=== PATIENT | male | born 1965 | race Caucasian/White ===

== ENCOUNTER 2018-05-15 10:58 | Inpatient (IN) | payer BC ==
--- NOTE | 2018-05-14 22:18 | PREOPHP ---
DATE OF ADMISSION: 05/15/2018 HISTORY OF PRESENT ILLNESS: The patient was originally seen in the office for evaluation of neck pain, shoulder pain, arm pain, weakness in his hands, and weakness in the legs with unstable balance. Patient was diagnosed with cervical 4, 5, 6, spondylosis with disc herniation, cord compression and myelopathy, quadraparesis. The patient received conservative management with a cervical epidural injections without any benefit. He also had received physical therapy and pain management in the past without much relief. Condition is getting worse. The patient is having more pain in the shoulders, weakness in the arms, weakness in his legs and is affecting his activities of daily living. Patient wants something more definitive to be done. The only option left is for patient to undergo surgical intervention of cervical 4, 5, 6 partial vertebrectomy, discectomy, interbody fusion, anterior locking plate. Procedure was described to the patient in great detail. The risks, benefits, possible complications explained extensively. The patient agrees and wants to proceed with surgical intervention. PAST MEDICAL HISTORY: Per chart. PAST SURGICAL HISTORY: Per chart. SOCIAL HISTORY: Denies use of drugs, alcohol or tobacco. ALLERGIES: PER CHART. MEDICATIONS: Taken at home per chart. FAMILY HISTORY: Unremarkable. REVIEW OF SYSTEMS: Additional 10 point system was conducted. The patient denies any bladder or bowel dysfunction. He states that his gait is unstable. PHYSICAL EXAMINATION: GENERAL: Patient is awake, alert, oriented. Follows commands. HEENT: Unremarkable. PULMONARY: No dyspnea and no tachypnea. CARDIOVASCULAR: No JVD. No pedal edema. ABDOMEN: Soft. No guarding or rebound. NEUROLOGIC: Awake alert, oriented. Follows commands. EXTREMITIES: Upper extremities overall strength 4/5 in deltoids, biceps, triceps, wrist extensors, intrinsics. MUSCULOSKELETAL: Hips, knees, and ankles overall strength is about 4/5 in iliopsoas, gastrocnemius, and anterior tibialis. IMAGING: Findings cervical spine MRI shows cervical 4, 5, 6 spondylosis with disc herniation, cord compression, myelopathy. IMPRESSION: Cervical 4, 5, 6, spondylosis, disc herniation, cord compression, myelopathy, quadraparesis. RECOMMENDATION: The patient to proceed with surgical intervention of cervical 4, 5, 6, partial vertebrectomy, discectomy, spinal fusion, ad anterior locking plate. The procedure was described to the patient in great detail. Approximately 45 minutes was spent with the patient going over the details of the surgery. Complications explained extensively including, infection, bleeding, permanent nerve damage, permanent cord injury, stroke, heart attack, even . Patient understands and wants to proceed with surgical intervention. The patient will be admitted to [facility] thereafter for further care and management. Dictated By: Jsoh Sargent MD /jameson/jada /Document#: [id number]
[~2018-05-15] VITALS: Ht 180.3 cm; Wt 101.4 kg
[2018-05-16] VITALS (36 sets, daily range): BP systolic 100–159; BP diastolic 54–103; PULSE 95–127; RESP 11–19; Ht 180.3 cm; Wt 101.4 kg
[2018-05-16] MEDS ORDERED: CEFAZOLIN 1 GM INJ ONE (07:00)
[2018-05-16] MEDS ORDERED: ONDANSETRON 4 MG INJ ONE (07:00)
[2018-05-16] MEDS ORDERED: DEXAMETHASONE 4 MG/ML 5 ML INJ ONE (07:00)
[2018-05-16] MEDS ORDERED: SUGAMMADEX SODIUM 200 MG/2 ML VIAL IV ONE (07:00)
[2018-05-16] MEDS ORDERED: DESFLURANE 15 MIN ONE (07:00)
[2018-05-16] MEDS ORDERED: niCARdipine 50 MG in SOD CHLORIDE 0.9% 480 ML IV SCH (11:00)
[2018-05-16] MEDS ORDERED: morphine 2 MG INJ IV PRN (11:00)
[2018-05-16] MEDS ORDERED: ONDANSETRON 4 MG INJ IV PRN ×2 (11:00→13:30)
[2018-05-16] MEDS ORDERED: ERGO2000 PO (11:42)
[2018-05-16] MEDS ORDERED: ATOR40TA68 PO (11:42)
[2018-05-16] MEDS ORDERED: ASPI81TA52 PO (11:42)
[2018-05-16] MEDS ORDERED: FOLI-49 PO (11:43)
[2018-05-16] MEDS ORDERED: CYCL10TA7 PO (11:43)
[2018-05-16] MEDS ORDERED: GABA300C16 PO (11:44)
[2018-05-16] MEDS ORDERED: HYDR25TA6 PO (11:45)
[2018-05-16] MEDS ORDERED: SUCCINYLCHOLINE CHLORIDE 100 MG/5 ML SYG IV ONE (12:22)
[2018-05-16] MEDS ORDERED: PROPOFOL 20 ML ONE (12:22)
[2018-05-16] MEDS ORDERED: LIDOCAINE 2% (SDV) 5 ML INJ ONE (12:22)
[2018-05-16] MEDS ORDERED: FENTAnyl 50 MCG/ML VIAL ONE ×2 (12:22→14:10)
[2018-05-16] MEDS ORDERED: METOCLOPRAMIDE 10 MG INJ ONE (12:22)
[2018-05-16] MEDS ORDERED: ROCURONIUM 50 MG INJ ONE (12:22)
[2018-05-16] MEDS ORDERED: MIDAZOLAM 1 MG/ML 2 ML INJ ONE (12:23)
[2018-05-16] MEDS ORDERED: THROMBIN 5000 UNIT VIAL ONE (13:17)
[2018-05-16] MEDS ORDERED: POLYMYXIN/BACITRACIN 1L IRRIG ONE (13:17)
[2018-05-16] MEDS ORDERED: BUPIVACAINE 0.5% (SDV) 30 ML INJ ONE (13:17)
--- NOTE | 2018-05-16 13:24 | PREAC ---
Date/Time of Note Date/Time of Note DATE: 05/16/18 TIME: 13:23 Anesthesia Eval and Record Evaluation Time Pre-Procedure Interview DATE: 05/16/18 TIME: 13:23 Age 52 Sex male NPO: 8 hrs Preoperative diagnosis cervical spinal stenosis Planned procedure cervical spinal decompression and fusion Past Medical History Past Medical History: Includes Cardio: HTN, Dyslipidemia Pulm: Smoking Hx (1ppd), COPD, Sleep Apnea Renal: Other (kidney stones) GI: Obesity Surgery & Anesthesia Issues Hx of difficult intubation Meds Anticoagulation: No Beta Lucio within 24 hr: No Reason Beta Lucio not given: Pt. not on B-Lucio Reported Medications Hydrochlorothiazide* (Hydrochlorothiazide*) 25 Mg Tab, 25 MG PO DAILY, #30 TAB 05/16/18 Gabapentin* (Gabapentin*) 300 Mg Capsule, 300 MG PO TID, #90 CAP 05/16/18 Folic Acid* (Folic Acid*) 1 Mg Tablet, 1 MG PO DAILY, TAB 05/16/18 Cyclobenzaprine Hcl* (Cyclobenzaprine Hcl*) 10 Mg Tablet, 10 MG PO Q8 PRN for PAIN AND/OR INFLAMMATION, #60 TAB 05/16/18 Ergocalciferol (Vitamin D2) (VITAMIN D2) 2,000 Unit Tablet, 2000 UNIT PO DAILY, TAB 05/16/18 Atorvastatin* (Atorvastatin*) 40 Mg Tablet, 40 MG PO QHS, #30 TAB 05/16/18 Aspirin (Low Dose Aspirin) 81 Mg Tablet.dr, 81 MG PO DAILY, #30 TAB 05/16/18 Current Medications Dextrose/Lactated Ringer's 1,000 ml @ 125 mls/hr Q8H IV ; Start 05/16/18 at 11:00; Status UNV Dexamethasone (Decadron) 4 mg Q6 IV ; Start 05/16/18 at 12:00; Stop 05/17/18 at 12:00; Status UNV Nicardipine HCl 50 mg/Sodium Chloride 500 ml @ 50 mls/hr TITRATE IV ; Start 05/16/18 at 11:00; Status UNV Clindamycin HCl/ Dextrose 50 ml @ 50 mls/hr Q6 IVPB ; Start 05/16/18 at 12:00; Stop 05/17/18 at 12:00; Status UNV Ondansetron HCl (Zofran Inj) 4 mg Q6H PRN IV NAUSEA AND/OR VOMITING; Start 05/16/18 at 11:00; Status UNV Morphine Sulfate (morphine) 2 mg Q4H PRN IV SEVERE PAIN LEVEL 7-10; Start 05/16/18 at 11:00; Status UNV Acetaminophen/ Hydrocodone Bitart ([place] (5/325)) 1 tab Q4H PRN PO MODERATE PAIN LEVEL 4-6; Start 05/16/18 at 11:00; Status UNV Meds reviewed: Yes Allergies Coded Allergies: Penicillins (Verified Allergy, Unknown, 05/16/18) bee venom protein (honey bee) (Verified Allergy, Unknown, 05/16/18) Allergies Reviewed: Yes Labs/Studies Labs Reviewed: Reviewed by anesthesiologist Result Diagram: 05/16/18 1207 05/16/18 1207 Laboratory Tests 05/16/18 12:07 test: N/A Studies: ECG, CXR Pre-procedure Exam Last vitals Vital Signs Date Temp Pulse Resp B/P (MAP) Pulse Ox O2 O2 Flow FiO2 Time Delivery Rate 05/16/18 97.0 99 16 137/88 98 Room Air 11:07 (104) Airway: Adequate mouth opening, Adequate thyromental dist Mallampati: Mallampati III Teeth: Normal Lung: Normal Heart: Normal ASA Physical Status ASA physical status: 3 Emergency: None Planned Anesthetic General/MAC: ETT Planned Pain Management Parenteral pain med, Other neuraxial med, Local by surgeon Pre-operative Attestations Prior to commencing anesthesia and surgery, the patient was re-evaluated, there was verification of: *The patient's identity *The results of appropriate recent lab work and preoperative vital signs *The above evaluation not changing prior to induction *Anesthetic plan, risk benefits, alternative and complications discussed with patient/family; questions answered; patient/family understands, accepts and wishes to proceed. ALDO GOULD MD May 16, 2018 13:24
[2018-05-16] MEDS ORDERED: HALOPERIDOL 5 MG INJ IV PRN (13:30)
[2018-05-16] MEDS ORDERED: hydrALAzine 20 MG INJ IV PRN (13:30)
[2018-05-16] MEDS ORDERED: MIDAZOLAM 1 MG/ML 2 ML INJ IV PRN (13:30)
[2018-05-16] MEDS ORDERED: FENTAnyl 50 MCG/ML VIAL IV PRN (13:30)
[2018-05-16] MEDS ORDERED: MEPERIDINE 25 MG INJ IV PRN (13:30)
[2018-05-16] MEDS ORDERED: DIPHENHYDRAMINE 50 MG INJ IV PRN (13:30)
[2018-05-16] MEDS ORDERED: LABETALOL HCL 20MG INJ IV PRN (13:30)
[2018-05-16] MEDS ORDERED: LEVALBUTEROL (NEB) 1.25 MG/0.5 ML AMP HHN PRN (13:30)
[2018-05-16] MEDS ORDERED: HYDROmorphONE 1 MG/5 ML IV SYRINGE IV PRN ×3 (13:30)
[2018-05-16] MEDS ORDERED: LORAZEPAM 2 MG INJ IV PRN (13:30)
[2018-05-16] MEDS ORDERED: IPRATROPIUM (NEB) 0.5 MG/2.5 ML AMP HHN PRN (13:30)
--- NOTE | 2018-05-16 13:30 | HPN ---
Date/Time of Note Date/Time of Note DATE: 05/16/18 TIME: 13:30 Interval H&P Admission Note Pt. seen H&P reviewed: No system changes XOCHITL GONSALES PA-C May 16, 2018 13:30
[2018-05-16] MEDS ORDERED: BUPIVACAINE 0.5%/EPI (SDV) 30 ML INJ INJ SCH (13:45)
--- NOTE | 2018-05-16 15:39 | OPR ---
Date/Time of Note Date/Time of Note DATE: 05/16/18 TIME: 15:36 Operative Report Preoperative Diagnosis CERVICAL FOUR FIVE SIX SEVERE SPONDYLOSIS WITH CORD COMPRESSION, MYELOPATHY, QUADRIPARESIS Postoperative Diagnosis SAME Operation/Procedure Performed CERVICAL FOUR FIVE SIX PARTIAL VERTEBRECTOMY, DISKECTOMY, INTERBODY FUSION AND ANTERIOR LOCKING PLATE Surgeon see signature line Fire Boss XOCHITL GONSALES PAC Anesthesia Type: general Anesthesiologist: ALDO GOULD MD Estimated Blood Loss: 10 - 50 ml's Transfusion none Specimen DISC Grafts/Implants none Complications none Pt Condition Post Procedure: stable Procedure Description CERVICAL FOUR FIVE SIX PARTIAL VERTEBRECTOMY WITH DISKECTOMY, INTERBODY FUSION AND ANTERIOR LOCKING PLATE XOCHITL GONSALES PA-C May 16, 2018 15:39
[2018-05-16] MEDS: DEXAMETHASONE 4 MG/ML 1 ML INJ IV SCH ×3 (16:40→23:58)
[2018-05-16] MEDS: FENTAnyl 50 MCG/ML VIAL IV PRN ×3 (17:06→18:45)
[2018-05-16] MEDS: DEXTROSE 5%-LR 1,000 ML IV SCH ×2 (17:40→19:00)
[2018-05-16] MEDS ORDERED: SOD CHLORIDE 0.9% 250 ML IV ONE (19:00)
[2018-05-16] MEDS ORDERED: morphine SULFATE/PF (2 MG/2 ML) SYG IV PRN (20:00)
[2018-05-16] MEDS: CLINDAMYCIN 600 MG/D5W (PMX) 50 ML IVPB SCH (20:21)
[2018-05-16] MEDS: morphine SULFATE/PF (2 MG/2 ML) SYG IV PRN (20:56)
[2018-05-16] MEDS: HYDROCODONE/APAP (5/325) TAB PO PRN (21:36)
--- NOTE | 2018-05-16 21:52 | RADRPT ---
Vent Rate: 95 bpm RR Interval: 0 msec LA Interval: 136 msec QRS Duration: 92 msec QT Interval: 352 msec QTC Interval: 442 msec P-R-T Shafer: 65 - 43 - 40 degrees Normal sinus rhythm Nonspecific ST and T wave abnormality Abnormal ECG Electronically Signed By: Garry Daley [id number]
--- NOTE | 2018-05-16 23:15 | HP ---
DATE OF ADMISSION: 05/16/2018 CHIEF COMPLAINT AND HISTORY OF PRESENT ILLNESS: The patient is a 52-year-old gentleman with history of hypertension and dyslipidemia who was seen by Dr. Chiu as an outpatient. The patient was evalu ated for neck pain, shoulder pain, arm pain and weakness in his hands and legs. The patient also has unsteady balance. The patient was diagnosed with cervical C4 through C6 spondylosis with disk herni ation with cord compression, myelopathy and quadriparesis. The patient received conservative managem ent with cervical epidural injection without any benefit. The patient also underwent physical therap y and pain management again without much relief. The patient was admitted today for a C4 through C6 partial vertebrectomy, diskectomy, spinal fusion. The patient postoperatively had a C-spine collar. REVIEW OF SYSTEMS: The patient denies any chest pain or short of breath. No history of fever or chi lls noted. No known history of coronary artery disease. No history of CVA in the past. No history of fever or chills. No history of vomiting. The rest of the review of systems is unremarkable. PAST SURGICAL HISTORY: None. ALLERGIES: 1. PENICILLIN. 2. BEE STING. FAMILY HISTORY: Noncontributory. SOCIAL HISTORY: No smoking, no alcohol. PHYSICAL EXAMINATION: GENERAL: The patient is awake, alert, fairly oriented. VITAL SIGNS: Temperature 98.1, pulse 110, respiration rate 18, blood pressure 142/90, O2 saturation 98% on 2 liters cannula. HEENT: No eye discharge or redness. Nose and ear are normal. NECK: A C-spine collar is in place. CHEST: Fairly clear. CARDIOVASCULAR: S1, S2 normal. ABDOMEN: Soft, nontender. EXTREMITIES: No leg edema. NEUROLOGIC: The patient is awake, alert, oriented, and moves all extremities. Detailed neurological examination was deferred due to ____. LABORATORY DATA: Labs done this morning, WBC 8.4, hemoglobin 18.2, platelet 173. Sodium 141, potass ium 3.6. Liver enzymes normal. Coagulation profile unremarkable. IMPRESSION: 1. C-spine spondylosis with cord compression, myelopathy and quadriparesis, status post surgery as d escribed above. 2. Hypertension. 3. Dyslipidemia. PLAN: The patient will be monitored in ICU and will be given IV clindamycin as per protocol. The pa tient will also be given IV fluids and was started on IV Cardizem drip for control of blood pressure. The patient also is on IV Decadron. For pain control, patient will be given Tylenol, [place] and IV morphine depending upon severity of the pain. We will do followup labs. Further recommendation will depend on patient's hospital course. Dictated By: NICOLE VELIZ/GELACIO Conf#: [id number] DID#: [id number] CC: SARAH CHIU MD;*EndCC*
[2018-05-17] VITALS (13 sets, daily range): BP systolic 115–152; BP diastolic 74–96; PULSE 74–119; RESP 14–20
[2018-05-17] MEDS ORDERED: METOPROLOL 5 MG INJ IV PRN (01:00)
[2018-05-17] MEDS: DEXTROSE 5%-LR 1,000 ML IV SCH ×3 (01:21→19:00)
[2018-05-17] MEDS: morphine SULFATE/PF (2 MG/2 ML) SYG IV PRN ×2 (04:47→09:23)
[2018-05-17] MEDS: DEXAMETHASONE 4 MG/ML 1 ML INJ IV SCH ×2 (06:26→11:58)
[2018-05-17] MEDS: CLINDAMYCIN 600 MG/D5W (PMX) 50 ML IVPB SCH ×3 (06:26→11:59)
[2018-05-17] MEDS: HYDROCODONE/APAP (5/325) TAB PO PRN ×3 (08:17→19:51)
--- NOTE | 2018-05-17 10:41 | OPR ---
DATE OF OPERATION: 05/16/2018 PREOPERATIVE DIAGNOSES: Cervical spondylosis, cervical stenosis, cervical radiculopathy with cervical quadriparesis number myelopathy C4-5, C5-6 stenosis. POSTOPERATIVE DIAGNOSES: 1. Cervical spondylosis, cervical stenosis, cervical radiculopathy with cervical quadraparesis number myelopathy C4-5, C5-6 stenosis, and cervical quadraparesis. PROCEDURES: 1. C4 partial vertebrectomy, anterior approach, CPT 05682. 2. C5 and C6 additional 2 level partial vertebrectomy CPT 56199 x 2. 3. C4-C5, anterior cervical interbody arthrodesis, CPT 75089. 4. C5-C6, anterior cervical interbody arthrodesis, CPT 72415. 5. C4-C5-C6, anterior cervical instrumentation utilizing [employer] Vectra T anterior cervical plate, CPT 74517. 6. C4-5, C5-6 placement of allograft for spinal fusion utilizing MTF ACF spacer with demineralized bone matrix, CPT 02838. SURGEON: Josh Sargent MD. REGIONAL AGRONOMIST: Mc Zhou PA-C. COMPLICATIONS: None. ANESTHESIA: General tracheal. ESTIMATED BLOOD LOSS: Was less than 100. COUNTS: Needle count and sponge counts were correct. SPECIMEN: Multiple fragments of disc were sent to pathology. INDICATION FOR OPERATION: Patient is well known to me. She was seen my office on multiple occasions. The patient is a 52-year- old with cervical spondylosis C5-6, C4-5. There is severe stenosis at C4-5. There is anterior . There is a central disc herniation. There is no foraminal or central cord stenosis. We will proceed with cervical diskectomy, partial vertebrectomy at C4-5 and C5-6 with interbody fusion instrumentation. Discussed operation including anesthesia, infection, bleeding, permanent neurologic injury and were explained. The patient agreed to proceed with the operation and signed the consent. OPERATION PERFORMED: The patient was placed supine. Conscious sedation was obtained. Neck was placed in a semi extended position and the neck was prepped in the normal sterile fashion. Fluoroscopy confirmed. Incision was made in the left anterior neck and past the platysma all the way to the anterior cervical fascia which was divided laterally, medially, superiorly, inferiorly and with the deep retractors form of [place] retractors were placed. X-ray confirmed the patient C4-5 and C5-6 level. Discectomy at C4-5 was done, partial vertebrectomy of the anterior osteophytes of the C5-6 was done. A complete discectomy at C4-5 was done, but since there was severe osteophyte formation I had to remove the inferior 3 mm vertebral body of C4 facet and superior 3 mm of C5 all the way to the posterior longitudinal ligament, which was drilled away and all the osteophytes were removed. The posterior translongitudinal ligament was detached from the posterior aspect of the vertebral body and was removed along with all the osteophytes with neural foraminotomy at both sides of midline with takedown of the joint. There is severe central canal stenosis. The spinal showed some improvement of signal. Same operation was done at the C5-6 level with complete discectomy. Following this, at the level of C4-5 I used 9 mm spacer provided by [employer] bone system. The bone was packed that 1 cc of demineralized bone matrix was tapped into place at the C4-5. The same procedure was done at the level of C4-5 and C5-6. At the level of C5-6 a 10 mm bone was utilized. Following this, the I started instrumentation part with a [employer] Vectra T-plate that was 38 mm long was affixed to the cervical spine with 14 mm screws. A total of 6 screws were utilized. Everything was torque tightened strictly stationed. The area was irrigated with bacitracin saline solution. The top was removed from the plate and closure of wound was started with 2-0 Vicryl for the platysma ,4 nylon subcuticular fashion for the skin with stay stitch in the skin. Patient tolerated the procedure well. Was taken to postanesthesia recovery in stable condition following commands and moving all upper and lower extremities. Dictated By: Josh Sargent MD /jameson/jada /Document#: [id number]
[2018-05-17] MEDS ORDERED: morphine 4 MG/ML VIAL IV PRN (12:30)
--- NOTE | 2018-05-17 18:13 | CONS ---
Date/Time of Note Date/Time of Note DATE: 05/17/18 TIME: 18:12 Assessment/Plan Assessment/Plan Assessment/Plan seen/examined awake alert follows moves all wound looks ok, steristrips applied, not bleeding post op mri looks good, c4-5-6 acdf, bruise on cord at c4-5 level pt/ot advance diet dc man ss eval. Result Diagram: 05/16/18 1207 05/17/18 0500 Results 24hrs Laboratory Tests Test 05/17/18 05:00 Sodium Level 140 Potassium Level 3.6 Chloride Level 101 Carbon Dioxide Level 26 Anion Gap 13 Blood Urea Nitrogen 15 Creatinine 0.87 Est Glomerular Filtrat Rate mL/min > 60 Glucose Level 155 Calcium Level 9.8 Consultation Date/Type/Reason Admit Date/Time May 16, 2018 at 11:00 Initial Consult Date Exam/Review of Systems Vital Signs Vitals Vital Signs Date Temp Pulse Resp B/P (MAP) Pulse Ox O2 O2 Flow FiO2 Time Delivery Rate 05/17/18 98.1 108 18 138/81 93 14:13 (100) 05/17/18 Nasal 10:00 Cannula 05/17/18 2.0 08:00 Intake and Output 05/16/18 05/16/18 05/17/18 1515:00 23:00 07:00 IntakeIntake Total 1500 ml 1465.75 ml 1090 ml OutputOutput Total 1585 ml 650 ml BalanceBalance 1500 ml -119.25 ml 440 ml Medications Medications Current Medications Dextrose/Lactated Ringer's 1,000 ml @ 125 mls/hr Q8H IV Last administered on 05/17/18at 11:59; Admin Dose 125 MLS/HR; Start 05/16/18 at 11:00 Ondansetron HCl (Zofran Inj) 4 mg Q6H PRN IV NAUSEA AND/OR VOMITING; Start 05/16/18 at 11:00 Acetaminophen/ Hydrocodone Bitart ([place] (5/325)) 1 tab Q4H PRN PO MODERATE PAIN LEVEL 4-6 Last administered on 05/17/18at 08:17; Admin Dose 1 TAB; Start 05/16/18 at 11:00 Metoprolol Tartrate (Lopressor) 5 mg Q6H PRN IV HR GREATER THAN 110 Last administered on 05/17/18at 01:16; Admin Dose 5 MG; Start 05/17/18 at 01:00; Status Hold Morphine Sulfate (morphine) 2 mg Q3 PRN IV SEVERE PAIN LEVEL 7-10 Last administ ered on 05/17/18at 12:38; Admin Dose 2 MG; Start 05/17/18 at 12:30 Miscellaneous Information (* Miscellaneous Pharmacy Order) PLEASE CONTACT PHYSIC... DAILY XX ; Start 05/17/18 at 12:32 Hydralazine HCl (Apresoline) 25 mg BID PRN PO SBP>150; Start 05/17/18 at 14:30 Acetaminophen/ Hydrocodone Bitart ([place] (5/325)) 2 tab Q4H PRN PO PAIN LEVEL 7-10 Last administered on 05/17/18at 15:24; Admin Dose 2 TAB; Start 05/17/18 at 14:30 XOCHITL GONSALES PA-C May 17, 2018 18:13
[2018-05-17] MEDS: [UNRECOGNIZED DRUG - OTHER] XX SCH (19:15)
[2018-05-18 02:17] VITALS: BP 143/82; PULSE 78; RESP 18
[2018-05-18 02:30] VITALS: BP 133/78; PULSE 78
[2018-05-18 07:16] VITALS: BP 153/98; PULSE 95; RESP 19
[2018-05-18] MEDS: HYDROCODONE/APAP (5/325) TAB PO PRN ×4 (07:30→22:47)
[2018-05-18] MEDS: [UNRECOGNIZED DRUG - OTHER] XX SCH (09:00)
--- NOTE | 2018-05-18 09:36 | CONS ---
Date/Time of Note Date/Time of Note DATE: 05/18/18 TIME: 09:33 Assessment/Plan Assessment/Plan Assessment/Plan seen/examined awake alert follows moves all good post op progress wound looks good, dry dc instructions given can go home in am Result Diagram: 05/16/18 1207 05/17/18 0500 Consultation Date/Type/Reason Admit Date/Time May 16, 2018 at 11:00 Initial Consult Date Exam/Review of Systems Vital Signs Vitals Vital Signs Date Temp Pulse Resp B/P (MAP) Pulse Ox O2 O2 Flow FiO2 Time Delivery Rate 05/18/18 98.1 95 19 153/98 95 Room Air 07:16 (116) 05/17/18 2.0 08:00 Intake and Output 05/17/18 05/17/18 05/18/18 1515:00 23:00 07:00 IntakeIntake Total 420 ml 1590 ml 500 ml OutputOutput Total 150 ml 850 ml BalanceBalance 270 ml 740 ml 500 ml Medications Medications Current Medications Ondansetron HCl (Zofran Inj) 4 mg Q6H PRN IV NAUSEA AND/OR VOMITING; Start 05/16/18 at 11:00 Acetaminophen/ Hydrocodone Bitart ([place] (5/325)) 1 tab Q4H PRN PO MODERATE PAIN LEVEL 4-6 Last administered on 05/17/18at 08:17; Admin Dose 1 TAB; Start 05/16/18 at 11:00 Metoprolol Tartrate (Lopressor) 5 mg Q6H PRN IV HR GREATER THAN 110 Last administered on 05/17/18at 01:16; Admin Dose 5 MG; Start 05/17/18 at 01:00; Status Hold Morphine Sulfate (morphine) 2 mg Q3 PRN IV SEVERE PAIN LEVEL 7-10 Last adminis tered on 05/17/18at 12:38; Admin Dose 2 MG; Start 05/17/18 at 12:30 Miscellaneous Information (* Miscellaneous Pharmacy Order) PLEASE CONTACT PHYSIC... DAILY XX ; Start 05/17/18 at 12:32 Hydralazine HCl (Apresoline) 25 mg BID PRN PO SBP>150 Last administered on 05/18/18at 07:41; Admin Dose 25 MG; Start 05/17/18 at 14:30 Acetaminophen/ Hydrocodone Bitart ([place] (5/325)) 2 tab Q4H PRN PO PAIN LEVEL 7-10 Last administered on 05/18/18at 07:30; Admin Dose 2 TAB; Start 05/17/18 at 14:30 Nicotine (Nicoderm 7 Mg/ 24 Hr) 1 patch DAILY TRANSDERM ; Start 05/18/18 at 21:00 XOCHITL GONSALES PA-C May 18, 2018 09:36
[2018-05-18] MEDS: NICOTINE (7 MG/24 HR) PATCH TRANSDERM SCH (10:37)
[2018-05-18] MEDS: HYDROCHLOROTHIAZIDE 25 MG TAB PO SCH (11:33)
--- NOTE | 2018-05-18 11:52 | PN ---
DATE: 05/17/2018 SUBJECTIVE: The patient's postoperative pain is well controlled. No reported chest pain or shortnes s of breath, no reported temperature spike. No reported vomiting. PHYSICAL EXAMINATION: GENERAL: The patient be awake, alert. VITAL SIGNS: Temperature 98.1, pulse 108, respiration 18, blood pressure 138/81, O2 saturation 92% t o 96% on room air. HEENT: No eye discharge or redness. NECK: The patient has C-spine collar. CHEST: Fairly clear. CARDIOVASCULAR: S1, S2 normal. ABDOMEN: Soft, nondistended, nontender. EXTREMITIES: No leg edema. NEUROLOGIC: The patient is awake, alert with no gross focal deficit. LABORATORY DATA: Chemistry done on 05/17/2018. Sodium 140, potassium 3.6, BUN 15, creatinine 0.8, g lucose 155, calcium 9.8. IMPRESSION: 1. C-spine spondylosis with cord compression and cervical myelopathy and quadriparesis, status post surgery. 2. Hypertension. 3. Dyslipidemia. The patient postop C-spine MRI reviewed. The patient clinically remains stable. The patient will be switched to Hydralazine on p.r.n. basis. The patient has been moved out of ICU. Continue postop care as per Dr. Chiu. We will continue to follow him from a medical standpoint. Dictated By: NICOLE VELIZ/GELACIO Conf#: [id number] DID#: [id number] CC: SARAH CHIU MD;*EndCC*
[2018-05-18] MEDS: GABAPENTIN 300 MG CAP PO SCH ×2 (12:57→21:09)
--- NOTE | 2018-05-18 14:04 | PN ---
Date/Time of Note Date/Time of Note DATE: 05/18/18 TIME: 14:03 Assessment/Plan VTE Prophylaxis Risk score (from Ns)>0 risk: 2 SCD applied (from Ns): Yes Lines/Catheters IV Catheter Type (from Nrsg): Saline Lock Urinary Cath still in place: Yes Reason Cath still needed: urinary retention Assessment/Plan Assessment/Plan 1. C-spine spondylosis with cord compression and cervical myelopathy and quadriparesis, status post surgery. - C-spine spondylosis with cord compression and cervical myelopathy and quadriparesis, status post surgery. 2. Hypertension. 3. Dyslipidemia. The patient postop C-spine MRI reviewed. The patient clinically remains stable. Result Diagram: 05/16/18 1207 05/17/18 0500 Exam/Review of Systems Vital Signs Vitals Vital Signs Date Temp Pulse Resp B/P (MAP) Pulse Ox O2 O2 Flow FiO2 Time Delivery Rate 05/18/18 98.1 95 19 153/98 95 Room Air 07:16 (116) 05/17/18 2.0 08:00 Intake and Output 05/17/18 05/17/18 05/18/18 1515:00 23:00 07:00 IntakeIntake Total 420 ml 1590 ml 500 ml OutputOutput Total 150 ml 850 ml BalanceBalance 270 ml 740 ml 500 ml Medications Medications Current Medications Ondansetron HCl (Zofran Inj) 4 mg Q6H PRN IV NAUSEA AND/OR VOMITING; Start 05/16/18 at 11:00 Acetaminophen/ Hydrocodone Bitart ([place] (5/325)) 1 tab Q4H PRN PO MODERATE PAIN LEVEL 4-6 Last administered on 05/17/18at 08:17; Admin Dose 1 TAB; Start 05/16/18 at 11:00 Metoprolol Tartrate (Lopressor) 5 mg Q6H PRN IV HR GREATER THAN 110 Last administered on 05/17/18at 01:16; Admin Dose 5 MG; Start 05/17/18 at 01:00; Status Hold Morphine Sulfate (morphine) 2 mg Q3 PRN IV SEVERE PAIN LEVEL 7-10 Last administered on 05/17/18at 12:38; Admin Dose 2 MG; Start 05/17/18 at 12:30 Miscellaneous Information (* Miscellaneous Pharmacy Order) PLEASE CONTACT PHYSIC... DAILY XX ; Start 05/17/18 at 12:32 Hydralazine HCl (Apresoline) 25 mg BID PRN PO SBP>150 Last administered on 05/18/18at 07:41; Admin Dose 25 MG; Start 05/17/18 at 14:30 Acetaminophen/ Hydrocodone Bitart ([place] (5/325)) 2 tab Q4H PRN PO PAIN LEVEL 7-10 Last administered on 05/18/18at 11:35; Admin Dose 2 TAB; Start 05/17/18 at 14:30 Atorvastatin Calcium (Lipitor) 40 mg QHS PO ; Start 05/18/18 at 21:00 Cyclobenzaprine HCl (Flexeril) 10 mg Q8H PRN PO PAIN AND/OR INFLAMMATION; Start 05/18/18 at 10:00 Folic Acid (Folic Acid) 1 mg DAILY PO ; Start 05/19/18 at 09:00 Gabapentin (Neurontin) 300 mg TID PO Last administered on 05/18/18at 12:57; Admin Dose 300 MG; Start 05/18/18 at 13:00 Hydrochlorothiazide (Hydrochlorothiazide) 25 mg DAILY PO Last administered on 05/18/18at 11:33; Admin Dose 25 MG; Start 05/18/18 at 10:00 Ergocalciferol (Drisdol Liquid (Ped)) 2,000 units DAILY PO ; Start 05/19/18 at 09:00 Nicotine (Nicoderm 7 Mg/ 24 Hr) 1 patch DAILY TRANSDERM Last administered on 05/18/18at 10:37; Admin Dose 1 PATCH; Start 05/18/18 at 10:30 FILIBERTO BURTON May 18, 2018 14:04
[2018-05-18 16:24] VITALS: BP 137/89; PULSE 86; RESP 18
[2018-05-18 19:46] VITALS: BP 141/90; PULSE 88; RESP 20
[2018-05-18 20:45] VITALS: BP 133/70; PULSE 81
[2018-05-18] MEDS ORDERED: NICOTINE (7 MG/24 HR) PATCH TRANSDERM SCH (21:00)
[2018-05-18] MEDS ORDERED: ATORVASTATIN 40 MG TAB PO SCH (21:00)
[2018-05-18] MEDS: CYCLOBENZAPRINE 10 MG TAB PO PRN (23:26)
[2018-05-19 02:34] VITALS: BP 136/95; PULSE 78; RESP 18
[2018-05-19 07:06] VITALS: BP 152/99; PULSE 82; RESP 15
[2018-05-19] MEDS: CYCLOBENZAPRINE 10 MG TAB PO PRN (07:39)
[2018-05-19] MEDS: HYDROCODONE/APAP (5/325) TAB PO PRN ×2 (07:40→13:25)
[2018-05-19] MEDS ORDERED: FOLIC ACID 1 MG TAB PO SCH (09:00)
[2018-05-19] MEDS ORDERED: ERGOCALCIFEROL (8000 UNITS/ML PO SYG) PO SCH (09:00)
[2018-05-19] MEDS: [UNRECOGNIZED DRUG - OTHER] XX SCH (09:00)
[2018-05-19] MEDS: NICOTINE (7 MG/24 HR) PATCH TRANSDERM SCH (09:12)
[2018-05-19] MEDS: GABAPENTIN 300 MG CAP PO SCH ×2 (09:13→13:25)
[2018-05-19] MEDS: HYDROCHLOROTHIAZIDE 25 MG TAB PO SCH (09:13)
--- NOTE | 2018-05-19 12:42 | PDOCDIS ---
Discharge Instructions CONDITION [id number] Patient Condition: Wlcog5m Stable HOME CARE INSTRUCTIONS: [id number] Diet Instructions: [id number] Regular ACTIVITY: [id number] Activity Restrictions: [id number] Slowly Increase Activity Rest between Activity Avoid heavy lifting Do not Drive Do not operate Machinery Do not operate Power Tool Avoid Heavy Housework [id number] Bathing Restrictions: [id number] Shower FOLLOW UP/APPOINTMENTS Follow-up Plan - FU with Primary MD in 1 week - FU with neuro surgery as recommended - Call 911 or go to the nearest hospital if symptoms get worse.Patient verbalized understanding dc instructions - staff / FILIBERTO Aly May 19, 2018 12:42
--- NOTE | 2018-05-19 12:45 | DS ---
Date/Time of Note Date/Time of Note DATE: 05/19/18 TIME: 12:45 Discharge Summary Admission/Discharge Info Admit Date/Time May 16, 2018 at 11:00 Discharge Date/Time Home Meds Reported Medications Hydrochlorothiazide* (Hydrochlorothiazide*) 25 Mg Tab, 25 MG PO DAILY, #30 TAB 05/16/18 Gabapentin* (Gabapentin*) 300 Mg Capsule, 300 MG PO TID, #90 CAP 05/16/18 Folic Acid* (Folic Acid*) 1 Mg Tablet, 1 MG PO DAILY, TAB 05/16/18 Cyclobenzaprine Hcl* (Cyclobenzaprine Hcl*) 10 Mg Tablet, 10 MG PO Q8 PRN for PAIN AND/OR INFLAMMATION, #60 TAB 05/16/18 Ergocalciferol (Vitamin D2) (VITAMIN D2) 2,000 Unit Tablet, 2000 UNIT PO DAILY, TAB 05/16/18 Atorvastatin* (Atorvastatin*) 40 Mg Tablet, 40 MG PO QHS, #30 TAB 05/16/18 Discontinued Reported Medications Aspirin (Low Dose Aspirin) 81 Mg Tablet., 81 MG PO DAILY, #30 TAB 05/16/18 Follow-up Plan - FU with Primary MD in 1 week - FU with neuro surgery as recommended - Call 911 or go to the nearest hospital if symptoms get worse.Patient verbalized understanding dc instructions - [facility] staff / Dr Mchugh Primary Care Provider Not On Staff Doctor FILIBERTO BURTON May 19, 2018 12:45
== END 2018-05-19 14:58 | disposition home or self-care (01) | DRG 471 ==
LOC: UNDOADMIN 10:58 → REC 10:58 → ICU 05-16 16:40 → MS1 05-17 11:37
PROVIDERS: ADMIT Neurological Surgery; ATTEND Neurological Surgery
PROC: 0RG20A0 Fusion of 2 or more Cervical Vertebral Joints with Interbody Fusion Device, Anterior Approach, Anterior Column, Open Approach (ICD-10-PCS; 2018-05-16)
PROC: 0RT30ZZ Resection of Cervical Vertebral Disc, Open Approach (ICD-10-PCS; 2018-05-16)
PROC: 0RG10A0 Fusion of Cervical Vertebral Joint with Interbody Fusion Device, Anterior Approach, Anterior Column, Open Approach (ICD-10-PCS; principal; 2018-05-16 13:30)
DX: M50.021 Cervical disc disorder at C4-C5 level with myelopathy (principal); G82.50 Quadriplegia, unspecified; M47.12 Other spondylosis with myelopathy, cervical region; M47.22 Other spondylosis with radiculopathy, cervical region; M48.02 Spinal stenosis, cervical region; I10 Essential (primary) hypertension; E78.5 Hyperlipidemia, unspecified; E66.9 Obesity, unspecified; Z68.31 Body mass index [BMI] 31.0-31.9, adult
CPT/HCPCS: 71045; 72050; 72141; 80048; 80053; 81001; 85025; 85610; 85730; 86850; 86900; 86901; 87081; 87086; 93005; 97110; 97116; 97162; C1713; J0690; J1100; J2250; J2270; J2274; J2405; J2765; J3010; J7040; J7121